=== PATIENT | female | born 1965 | race Caucasian/White ===

== ENCOUNTER 2025-02-03 11:09 | Outpatient (CLI) | payer BC, SELFPAY ==
--- OUTSIDE RECORDS SUMMARY | 2025-02-03 11:15 | XMS_ITS | Encounter Summary ---
Author Organization [facility] Address [address] [place] [address] Care Team Providers Care Painting Department Supervisor Name Role Phone Unavailable Primary Care Provider Unavailabl e Encounter Details Date Type Department Care Team (Late st Contact Info) Description 01/09/2000 Outpatient Historical [facility] 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
--- OUTSIDE RECORDS SUMMARY | 2025-02-03 11:15 | XMS_ITS | Encounter Summary ---
Author Organization [facility] Address 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
--- OUTSIDE RECORDS SUMMARY | 2025-02-03 11:15 | XMS_ITS | Encounter Summary ---
Author Organization [facility] [employer] Address [address] [place] [address] Care Team Providers Care Vending Enterprises Supervisor Name Role Phone Unavailable Primary Care Provider Unavailabl e Encounter Details Date Type Department Care Team (Late st Contact Info) Description 03/08/2000 Outpatient Historical [facility] 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
--- OUTSIDE RECORDS SUMMARY | 2025-02-03 11:15 | XMS_ITS | Clinical Summary ---
Author Organization [facility] Address [address] [facility] [address] [place] [address] Care Team Providers Care Door Framer Name Role Phone Unavailable Primary Care Provider Unavailabl e Source Comments [facility],non-owned Affiliates and Associated Physician Practices is amultiple site organization consisting of ambulatory clinics and hospital sitesin [place], [place], [place] and [place]. This disclosure is being madepursuant to the Care Everywhere program and may not contain all information available regarding this patient. Last updated 18.[facility] Allergies No known active allergies Medications * Be aware that medications may not be up to date on this document. Alwaysverify current medications with the patient. Medication Sig Dispense Quantity Refills Last Filled Start D ate End Date Status NAPROXEN PO Active Social History Tobacco Use Types Packs/Day Years Used Date Smoking Tobacco: Every Day Cigarettes Comments Unknown Sex and Gender Information Value Date Recorded Sex Assigned at Not on file Legal Sex Female 8:13 AM CDT Gender Identity Not on file Sexual Orientation Not on file Last Filed Vital Signs Vital Sign Reading Time Taken Comments Blood Pressure 122/80 11/05/2017 8:33 AM CDT Pulse 74 11/05/2017 8:33 AM CDT Temperature 37 C (98.6 F) 11/05/2017 8:33 AM CDT Respiratory Rate 18 04/04/2016 8:31 AM CDT Oxygen Saturation 98% 04/04/2016 8:31 AM CDT Inhaled Oxygen Concentration - - Weight 65.8 kg (145 lb) 11/05/2017 8:33 AM CDT Height 157.5 cm (5' 2) 11/05/2017 8:33 AM CDT Body Mass Index 26.52 11/05/2017 8:33 AM CDT Plan of Treatment Health Maintenance Due Date Last Done Comments COLOGUARD (AGES 45-75) - COL ON CA SCREENING 1966 COLON MONITORING 1966 COLONOSCOPY - COLON CA SCREENING 1966 CT COLONOGRAPHY - COLON CA SCREENING 1966 Colorectal Cancer Screening 1966 FIT - COLON CA SCREENING 1966 FLEX SIG - COLON CA SCREENING 1966 LIPID TESTING 1966 MAMMOGRAM 1966 HIV SCREENING 1981 HEPATITIS C SCREENING 12/30/1983 DTAP/TDAP/TD VACCINES (1 - Tdap) 1985 HEPATITIS B VACCINE (1 of 3 - 19+ 3-dose series) 1985 PNEUMOCOCCAL VACCINE 50+ (1 of 1 - PCV) 01/04/2016 ZOSTER VACCINE (1 of 2) 01/04/2016 SCREENING FOR DIABETES 11/05/2017 COVID-19 VACCINE (1 - 2023-2 5 season) 2024 DEPRESSION SCREENING 07/30/2024 INFLUENZA VACCINE (Season Ended) 2025 HIB VACCINE Aged Out No longer eligi ble based on patient's age to complete this topic HPV VACCINE Aged Out No longer eligi ble based on patient's age to complete this topic MENINGOCOCCAL (Group B) VACC INE SHARED DECISION-MAKING Aged Out No longer eligibl e based on patient's age to complete this topic MENINGOCOCCAL GROUPS A/C/Y/W VACCINE Aged Out No longer eligible b ased on patient's age to complete this topic Insurance [employer]
--- OUTSIDE RECORDS SUMMARY | 2025-02-03 11:15 | XMS_ITS | Encounter Summary ---
Author Organization [facility] Address [address] [place] [address] Care Team Providers Care Package Reinspector Name Role Phone Unavailable Primary Care Provider Unavailabl e Encounter Details Date Type Department Care Team (Late st Contact Info) Description 10/01/2000 Outpatient Historical [facility] HAND FUR CLEANER - Medical [facility] [address] 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
--- OUTSIDE RECORDS SUMMARY | 2025-02-03 11:15 | XMS_ITS | Encounter Summary ---
Author Organization [facility] Address 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
--- OUTSIDE RECORDS SUMMARY | 2025-02-03 11:15 | XMS_ITS | Encounter Summary ---
Author Organization [employer] Address [address] [place] [address] Care Team Providers Care Belt Conveyor Drier Name Role Phone Unavailable Primary Care Provider Unavailabl e Encounter Details Date Type Department Care Team (Late st Contact Info) Description 02/09/2000 Outpatient Historical [facility] Paige, Reinaldo Baptiste MD [address] [place] [phone] Social History Tobacco Use Types Packs/Day Years Used Date Smoking Tobacco: Never Assessed Comments Unknown Sex and Gender Information Value Date Recorded Sex Assigned at Not on file Legal Sex Female 4:31 AM LUMBER BUYER Gender Identity Not on file Sexual Orientation Not on file documented as of this encounter Plan of Treatment Not on file documented as of this encounter Visit Diagnoses Not on filedocumented in this encounter
--- OUTSIDE RECORDS SUMMARY | 2025-02-03 11:15 | XMS_ITS | Encounter Summary ---
Author Organization [facility] Address [address] [place] [address] Care Team Providers Care Hand Spring Repairer Helper Name Role Phone Unavailable Primary Care Provider Unavailabl e Encounter Details Date Type Department Care Team (Late st Contact Info) Description 03/08/2000 Outpatient Historical [facility] 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
--- OUTSIDE RECORDS SUMMARY | 2025-02-03 11:15 | XMS_ITS | Referral Summary ---
Author Organization [facility] [place] [address] Address [address] [place] [id number] Care Team Providers Care Nozzle Tender Name Role Phone Arian Mcconnell MD Primary Care Provider [phone] Encounters Date Type Department Care Team Description 12/01/2024 8:45 AM CDT Office Visit [facility] [place] [address] [place] [address] [address] [place] [address] Arian Mcconnell MD Tobacco use disorder, mild, in sustained remission (Primary Dx); Liver lesion; Chronic right shoulder pain; Shift work sleep disorder from Last 3 Months Allergies No known active allergies Medications ibuprofen (ADVIL,MOTRIN) 200 mg tab/cap Take 1 tablet/capsu le (200 mg total) by mouth every 6 (six) hours as needed for pain Active zolpidem (AMBIEN) 5 mg tablet Take 1 tablet (5 mg total) by mouth nightly as needed for sleep for sleep 30 tablet 2 05/30/2024 Active Active Problems Problem Noted Date Diagnosed Date Right shoulder pain 08/23/2024 Assessment & Plan (12/01/2024 1:35 PM CDT): Follows with orthopedics for evaluation and management Skin abnormality 12/13/2023 Adenoma of right adrenal gland 11/20/2023 Assessment & Plan (06/03/2024 3: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 Production of steroids, androgens and catecholamines was explained. It was explained to the patient that the main questions to answer it is if this is benign tumor and if it is hyperfunctioning. There are already imaging studies with MRI from 2021 in 2023 that has shown no changes in the size or appearance of the right adrenal nodule. Also the radiological appearance is that of a benign adenoma. Regarding hyper functionality, there is no indication on physical examination review of systems of hypercortisolism, hypoadrenalism nor hyperandrogenism. To complete workup,will assess with 1 mg dexamethasone suppression test, DHEA, DHEA-S and serum catecholamines. If these are negative, no further follow-up will be indicated. Otherwise, will follow up with recommendations Assessment & Plan (11/20/2023 2:55 PM CDT): Stable, labs generally normal with no evidence of electrolyte alterations, or adjustments to blood sugars; will follow up on recommendations per Endocrinology Macrocytosis without anemia 05/17/2023 Assessment & Plan (11/20/2023 2:54 PM CDT): Stable, MCV remains elevated with normal H&H Will continue to monitor Assessment & Plan (05/17/2023 11:33 AM CDT): - prior labs MCV- 100 w/o anemia - with r/o folate and/or B12 def Stress incontinence (female) (male) 05/17/2023 Assessment & Plan (05/17/2023 11:31 AM CDT): - loss of urine w/ coughing or laughing. No dysuria, no lesions or discharge. - patient prefers trial of home exercises. Provided info in [place]. - If no improvement consider PT pelvic floor rehab. Liver lesion 05/17/2023 Overview (05/17/2023): 02/22/22- 1.9 cm cyst within the liver. Multiple additional tiny T2 hyperintense foci are zak metric in size and would statistically represent cysts as well. No abnormal enhancing lesion within the liver. 2. No definitive correlate for 6 mm hyperechoic lesion within the right hepatic lobe on prior ultrasound from 11/14/2021. 05/23/22- US liver- Unchanged hyperechoic 0.6 cm right hepatic lobe lesion without a specific correlate on the prior MRI. This appears to be a tiny hypodensity on the prior CT and therefore may be a tiny hemangioma. 6-12 month ultrasound follow-up recommended. Assessment & Plan (12/01/2024 1:35 PM CDT): Stable, small simple cyst seen on imaging; no further imaging required; per patient has been present for at least 30 years Assessment & Plan (11/20/2023 2:54 PM CDT): Stable, improved on imaging; will continue to monitor with regular imaging; likely annual in nature; most likely benign cysts Assessment & Plan (05/17/2023 11:39 AM CDT): - no abdominal pain, unexpected silvia loss or jaundice - lesions have been stable. Last imaging was 1 year ago. 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 Assessment & Plan (11/20/2023 2:55 PM CDT): Stable, well controlled with current medications Continue Ambien 5 mg Assessment & Plan (05/17/2023 1:08 PM CDT): Patient has irregular work schedule, often switching schedule between work days and non-work days Patient benefits from use of sleep aid to help regulate sleep schedule Continue Ambien 5 mg p.r.n. 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 12/02/19 22 Overview (12/01/2021): Added automatically from request for surgery [id number] Cubital tunnel syndrome on left 12/01/2021 Overview (12/01/2021): Added automatically from request for surgery [id number] Trigger finger of left thumb 12/01/2021 Overview (12/01/2021): Added automatically from request for surgery [id number] Encounter for screening colonoscopy 11/29/2021 Overview (11/29/2021): Added automatically from request for surgery [id number] Cubital tunnel syndrome on right 08/29/2021 Overview (08/29/2021): Added automatically from request for surgery [id number] Numbness and tingling of both feet 08/04/2019 Bilateral carpal tunnel syndrome 07/10/2019 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 Overview (11/03/2016): Early menopause Tobacco use disorder, mild, in sustained remissi on 07/16/2013 Overview (11/03/2016): Tobacco use Assessment & Plan (12/01/2024 1:34 PM CDT): Stable, well controlled; tobacco free for 10 months; no significant cravings at this time Encouraged continued cessation Assessment & Plan (06/03/2024 3:41 PM ELECTRICAL ENGINEERING 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 - not interested in quitting smoking at this time - w/ offer assistance at subsequent visits - Low dose CT pending Assessment & Plan (05/16/2022 1:17 PM CDT): Patient smokes approximately 1 pack per day, for over 20 years; has been getting CT scans Continue with annual surveillance Immunizations Immunization Administration Dates Next Due Influenza, Quadrivalent, Spl it, Intramuscular 05/03/2015 Influenza, Quadrivalent, Spl it, Preservative Free, Intramuscular 05/16/2022 Influenza, Trivalent, Preser vative Free, Intramuscular 06/05/2008 Influenza, Unspecified 08/21/2024(Deferr ed: Patient Refused),05/05/2024(Deferred: Patient Refused),11/20/2023(Deferred: Patient Refused),05/17/2023(Deferred: Patient Refused),03/30/2023(Deferred: Patient Refused) Tdap 05/16/2022 Social History Tobacco Use Types Packs/Day Years Used Date Smoking Tobacco: Former Cigarettes 1 20 Q uit: 04/29/2024 Smokeless Tobacco: Never Comments:Smoking History Pac ks/day: 0.5 Packs, counselling given, contact PCP for assistance for quitting. Alcohol Use Standard Drinks/Week Comments Yes 0 (1 standard drink = 0.6 oz pur e alcohol) AUDIT-C Answer Date Recorded Q1: How often do you have a drink containing alc ohol? Monthly or less 11/28/2023 Average Number of Drinks Not on file 024 Frequency of Binge Drinking Not on file 07/2023 PHQ-2 Answer Date Recorded PHQ-2 Total Score (If total score is 3 or more points, staff should administer the PHQ-9) 0 12/01/2024 Comments No Sex and Gender Information Value Date Recorded Sex Assigned at Not on file Legal Sex Female 6:45 PM ELECTRICAL ENGINEERING PROFESSOR Gender Identity Not on file Sexual Orientation Not on file Last Filed Vital Signs Vital Sign Reading Time Taken Comments Blood Pressure 110/72 12/01/2024 8:45 AM CDT Pulse 72 12/01/2024 8:45 AM CDT Temperature 36.3 C (97.4 F) 12/01/2024 8:45 AM CDT Respiratory Rate 18 12/01/2024 8:45 AM CDT Oxygen Saturation 98% 12/01/2024 8:45 AM CDT Inhaled Oxygen Concentration - - Weight 71.7 kg (158 lb) 12/01/2024 8:45 AM CDT Height 157.5 cm (5' 2) 12/01/2024 8:45 AM CDT Body Mass Index 28.9 12/01/2024 8:45 AM CDT Plan of Treatment Not on file Procedures Procedure Name Priority Date/Time Associated Diagnosis Comments CT LUNG CANCER SCREENING Schedule Routine, Read Routine (OP Routine) 10/04/2024 8:15 AM ELECTRICAL ENGINEERING PROFESSOR Tobacco use Cigarette nicotine dependence, uncomplicated SCREENING MAMMOGRAM BILATERAL W ALYSON Schedule Routine, Read Routine (OP Routine) 07/03/2024 2:25 PM ELECTRICAL ENGINEERING PROFESSOR Breast cancer screening by mammogram HEPATITIS C ANTIBODY Routine 05/27/2024 10:07 AM CDT Encounter for hepatitis C screening test for low risk patient COLONOSCOPY 01/02/2022 11:19 AM CDT from Last 3 Months or Most Recently Relevant to Health Maintenance Results * CT Lung Cancer Screening (10/04/2024 8:15 AM ELECTRICAL ENGINEERING PROFESSOR) Anatomical Region Laterality Modality Chest N/A Computed Tomogra phy 10/07/2024 11:3 2 AM CDT Narrative 10/07/2024 11:44 AM CDT EXAM DESCRIPTION: CT LUNG CANCER SCREENING REASON FOR STUDY: Screening CT of the chest in a former smoker with a 20 pack year smoking history. Additional history: Stopped smoking 04/29/2024. TECHNIQUE: Low dose CT scan of the chest was performed without intravenous contrast using helical scanning technique. The exam extends from the lung apices through the lung bases. Automatic exposure control was used as a dose optimization technique. NOTE: This study was performed for the specific purposes of lung cancer screening and is not an alternative to diagnostic chest CT. RADIATION DOSE: CT dose index volume (CTDIvol) = 1.52 mGy COMPARISON: CT chest 06/19/2023 FINDINGS: SMOKING RELATED LUNG DISEASE: Mild emphysema. There has been minimal improvement in subtle tiny centrilobular ground-glass nodules in the upper lobes suggestive of mild respiratory bronchiolitis in a smoker. LUNG NODULES: Tiny centrilobular ground-glass nodules as discussed above. No suspicious lung nodules are seen. CORONARY ARTERY CALCIFICATION: Positive OTHER: There is no pleural effusion or pneumothorax. The central airways are patent. Normal heart size. No pericardial effusion. Thoracic aorta is normal in course and caliber. No mediastinal or axillary lymphadenopathy. There is nonobstructing left-sided nephrolithiasis. No suspicious osseous lesion. IMPRESSION: No suspicious lung nodules. Minimal improvement in subtle tiny centrilobular ground-glass nodules in the upper lobes suggestive of mild respiratory bronchiolitis in a smoker. Mild emphysema. Lung-RADS category 2: Benign appearance or behavior. Recommendation: Low dose Screening CT of chest in 12 months. THIS IS AN ELECTRONICALLY VERIFIED FINAL REPORT 10/07/2024 11:44 AM - Electronically signed by Mejia Waller M.D. AM: AM Report ID: [id number] Reading Location: [id number] Procedure Note Mejia Waller MD - 10/07/2024 EXAM DESCRIPTION: CT LUNG CANCER SCREENING REASON FOR STUDY: Screening CT of the chest in a former smoker with a20 pack year smoking history. Additional history: Stopped [id number]/29/2024. TECHNIQUE: Low dose CT scan of the chest was performed without intravenous contrast using helical scanning technique. The exam extends from the lung apices through the lung bases. Automatic exposure control was used as adose optimization technique. NOTE: This study was performed for the specific purposes of lung cancer screening and is not an alternative to diagnostic chest CT. RADIATION DOSE: CT dose index volume (CTDIvol) = 1.52 mGy COMPARISON: CT chest 06/19/2023 FINDINGS: SMOKING RELATED LUNG DISEASE: Mild emphysema. There has been minimal improvement in subtle tiny centrilobular ground-glass nodules in the upper lobes suggestive of mild respiratory bronchiolitis in a smoker. LUNG NODULES: Tiny centrilobular ground-glass nodules as discussedabove. No suspicious lung nodules are seen. CORONARY ARTERY CALCIFICATION: Positive OTHER: There is no pleural effusion or pneumothorax. The centralairways are patent. Normal heart size. No pericardial effusion. Thoracic aortais normal in course and caliber. No mediastinal or axillary lymphadenopathy. There is nonobstructing left-sided nephrolithiasis. No suspicious osseous lesion. IMPRESSION: No suspicious lung nodules. Minimal improvement in subtle tiny centrilobular ground-glass nodules inthe upper lobes suggestive of mild respiratory bronchiolitis in a smoker. Mild emphysema. Lung-RADS category 2: Benign appearance or behavior. Recommendation: Low dose Screening CT of chest in 12 months. THIS IS AN ELECTRONICALLY VERIFIED FINAL REPORT 10/07/2024 11:44 AM - Electronically signed by Mejia Waller M.D. AM: AM Report ID: [id number] Reading Location: [place] [address] Arian Mcconnell MD [facility] [place] PROCEDURES Final R esult * Screening Mammogram Bilateral W Alyson (07/03/2024 2:25 PM ELECTRICAL ENGINEERING PROFESSOR) Anatomical Region Laterality Modality Breast Bilateral Mammography 07/03/2024 4:41 PM ELECTRICAL ENGINEERING PROFESSOR Impressions 07/03/2024 4:41 PM ELECTRICAL ENGINEERING PROFESSOR There is no mammographic evidence to suggest malignancy. The patient may continue screening mammography as per ACR guidelines. FINAL ASSESSMENT: BI-RADS Category 1: Negative. Electronically signed by: Lily Lebron M.D. Narrative 07/03/2024 4:41 PM ELECTRICAL ENGINEERING PROFESSOR EXAMINATION: BILATERAL SCREENING MAMMOGRAM WITH TOMOGRAPHY HISTORY: Screening. COMPARISON(S): 2022 and 2021 TECHNIQUE: Full-field 2D images and digital tomosynthesis images were obtained. CAD was utilized. BREAST PARENCHYMAL COMPOSITION: There are scattered areas of fibroglandular density. FINDINGS: There are no suspicious masses. No suspicious calcifications are seen. There is no unexplained architectural distortion. There is no skin thickening seen. There are no mammographically abnormal lymph nodes seen in the axillae or elsewhere. Procedure Note Lily Lebron MD - 07/03/2024 EXAMINATION: BILATERAL SCREENING MAMMOGRAM WITH TOMOGRAPHY HISTORY: Screening. COMPARISON(S): 2022 and 2021 TECHNIQUE: Full-field 2D images and digital tomosynthesis images were obtained. CAD was utilized. BREAST PARENCHYMAL COMPOSITION: There are scattered areas of fibroglandular density. FINDINGS: There are no suspicious masses. No suspicious calcifications are seen. There is no unexplained architectural distortion. There is no skin thickening seen. There are no mammographically abnormal lymph nodes seen in the axillae or elsewhere. IMPRESSION: There is no mammographic evidence to suggest malignancy. The patient may continue screening mammography as per ACR guidelines. FINAL ASSESSMENT: BI-RADS Category 1: Negative. Electronically signed by: Lily Lebron M.D. Arian Mcconnell MD IMG MAMMO PROCEDURES Lois l Result * Hepatitis C antibody Blood (05/27/2024 10:07 AM CDT) Hep C Ab Nonreactive Nonreactive Comment: Interpretive Data Nonreactive: Antibodies to HCV not detected. Does NOT exclude the possibility of recent exposure to HCV. Equivocal: Equivocal for HCV antibodies. Supplemental molecular testing will be automatically performed to determine infection status in accordance with current CDC screening recommendations. Reactive: Positive for HCV antibodies. This may represent current or past HCV infection. Supplemental molecular testing will be automatically performed to determine current infection status in accordance with current CDC screening recommendations. Interpretive data was last revised on 2019. Blood 05/27/2024 10:0 7 AM CDT 05/27/2024 12:54 PM CDT Arian Mcconnell MD LAB MICROBIOLOGY - GENERA L ORDERABLES Final Result [address] [facility] [place] [address] * COLONOSCOPY (01/02/2022 11:19 AM CDT) Anatomical Region Laterality Modality Other Narrative Procedure Note Sg Urbina MD - 01/02/2022 11:19 AM CDT [facility] Patient Name: Martha Pham Procedure Date: 01/02/2022 11:19 AM Date of : 1965 Admit Type: Outpatient Age: 56 Gender: Female Attending MD: Sg Urbina M.D. Room: [facility] ENDOSCOPY ROOM 2 Note Status: Finalized Patient Profile: Refer to note in patient chart for documentation of history and physical. Procedure: Colonoscopy Indications: Screening for colorectal malignant neoplasm, Thisis the patient's first colonoscopy Referring MD: Missael Gerardo M.D. Providers: Sg Urbina M.D. Impression: - Hemorrhoids found on perianal exam. - The entire examined colon is normal. - No specimens collected. Recommendation: - Discharge patient to home. - Resume previous diet. - Continue present medications. - Repeat colonoscopy in 10 years for screening purposes. - Return to primary care physician as previously scheduled. Medicines: Propofol per Anesthesia Complications: No immediate complications. Estimated Blood Loss: Estimated blood loss: none. Procedure: Pre-Anesthesia Assessment: - This assessment was completed [Time ofAssessment] prior to the administration of sedation. The benefits, risks and alternatives of theprocedure and sedation were discussed and informed consentwas obtained. All questions were answered. Please referto the signed informed consent document in the medical record. The bowel preparation used was Miralax via single dose instruction. The bowel preparation used was bisacodyl tablets via single dose instruction.The scope was passed under direct vision. TheColonoscope [id number] was introduced through the anus and advanced to the the cecum, identified by appendiceal orifice and ileocecal valve. The colonoscopy was performed without difficulty. The patient tolerated the procedure well. The qualityof the bowel preparation was excellent. The ileocecal valve, appendiceal orifice, and rectum were photographed. Findings: Hemorrhoids were found on perianal exam. The colon (entire examined portion) appeared normal. Electronically signed by Sg Urbina M.D. Sg Urbina M.D. 01/02/2022 11:48:40 AM Number of Addenda: 0 Note Initiated On: 01/02/2022 11:19 AM Procedure Code(s): --- Professional --- G0121, Colorectal cancer screening; colonoscopy on individual not meeting criteria for high risk Diagnosis Code(s): --- Professional --- K64.9, Unspecified hemorrhoids Z12.11, Encounter for screening for malignant neoplasm of colon CPT copyright 2020 [employer]. All rights reserved. The codes documented in this report are preliminary and upon windows security analyst reviewmay be revised to meet current compliance requirements. Recognized by the [employer] for promoting quality in endoscopy us Sg Urbina MD ENDOSCOPY PROCEDURES Final Re sult from Last 3 Months or Most Recently Relevant to Health Maintenance [place] [employer] [place] [employer] [place] [employer] [place] Advance Directives For more information, please contact: [phone] * Full Code (Latest Code Status on File) Date Activated Date Inactivated Comments 01/02/2022 10:07 AM 01/02/2022 4:39 PM * Full Code Date Activated Date Inactivated Comments 01/02/2022 10:06 AM 01/02/2022 10:07 AM Care Teams Nozzle Tender Relationship Specialty Start Date End Date Arian Mcconnell MD [address] [place] [address] PCP - General Family Medicine 05/16/22
--- OUTSIDE RECORDS SUMMARY | 2025-02-03 11:15 | XMS_ITS | Clinical Summary ---
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
--- OUTSIDE RECORDS SUMMARY | 2025-02-03 11:15 | XMS_ITS | Encounter Summary ---
Author Organization [employer] Address [address] [place] [address] Care Team Providers Care Director Sales Training Name Role Phone Unavailable Primary Care Provider Unavailabl e Encounter Details Date Type Department Care Team (Late st Contact Info) Description 01/27/2000 Outpatient Historical [facility] DR[facility] 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
--- OUTSIDE RECORDS SUMMARY | 2025-02-03 11:15 | XMS_ITS | Encounter Summary ---
Author Organization [employer] Address [address] [place] [address] Care Team Providers Care Test Engineering Technician Name Role Phone Unavailable Primary Care Provider Unavailabl e Encounter Details Date Type Department Care Team (Late st Contact Info) Description 11/07/1999 Outpatient Historical [facility] 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
--- OUTSIDE RECORDS SUMMARY | 2025-02-03 11:15 | XMS_ITS | Encounter Summary ---
Author Organization [facility] Address 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
--- OUTSIDE RECORDS SUMMARY | 2025-02-03 11:15 | XMS_ITS | Clinical Summary ---
Author Organization [facility] Address [address] [place] [address] Phone Care Team Providers Care Storyboard Artist Name Role Phone Unavailable Primary Care Provider Unavailabl e Allergies No known active allergies Medications No known medications Active Problems No known active problems Immunizations Immunization Administration Dates Next Due Influenza Vaccine 06/05/2008 Influenza Vaccine, Quadrivalent, PF 05/16/2022 Influenza, Injectable, Quadrivalent 05/03/2015 TDAP Vaccine 05/16/2022 Social History Tobacco Use Types Packs/Day Years Used Date Smoking Tobacco: Every Day Cigarettes 1 30 Tobacco Cessation:Ready to Q uit: Not Asked; Counseling Given: Not Answered Alcohol Use Standard Drinks/Week Comments Not Currently 0 (1 standard drink = 0.6 oz pur e alcohol) Sexually Active Control Partners Comments Not Currently Comments No Sex and Gender Information Value Date Recorded Sex Assigned at Not on file Legal Sex Female 9:51 PM CDT Gender Identity Not on file Sexual Orientation Not on file Last Filed Vital Signs Vital Sign Reading Time Taken Comments Blood Pressure 124/76 07/15/2022 10:51 AM WET END TESTER Pulse 58 07/15/2022 10:51 AM WET END TESTER Temperature 37.1 C (98.7 F) 07/15/2022 10:51 AM WET END TESTER Respiratory Rate 17 07/15/2022 10:51 AM WET END TESTER Oxygen Saturation 97% 07/15/2022 10:51 AM WET END TESTER Inhaled Oxygen Concentration - - Weight - - Height - - Body Mass Index - - Plan of Treatment Health Maintenance Due Date Last Done Comments Hepatitis C Virus (HCV) Screening 1965 Hepatitis B Immunization (1 of 3 - 19+ 3-dose series) 1985 Cologuard 2011 Colonoscopy 2011 Colorectal Cancer Screening 2011 Immunochemical Fecal Occult Blood 2011 Pneumococcal Immunization (5 0+ years) (1 of 1 - PCV) 01/04/2016 Zoster Immunization (1 of 2) 01/04/2016 SARS-COV-2 Immunization (3 - season) 2024 06/09/2021, 05/19/2021 Influenza Immunization (#1) 03/30/202504/29, 05/03/2015, 06/05/2008 Respiratory Syncytial Virus (RSV) Immunization (Adult) (1 - 1-dose 75+ series) 2041 Lung Cancer Screening Discontinued 09/08/2021 DTaP/Tdap/Td Immunization Discontinued 05/16/2022 Human Papillomavirus (HPV) Immunization Aged Out No longer eligible based on patient's age to complete this topic Meningococcal Immunization (ACWY) Aged Out No longer eligible based on patient's age to complete this topic Rotavirus Immunization Aged Out No lo nger eligible based on patient's age to complete this topic Procedures Procedure Name Priority Date/Time Associated Diagnosis Comments CT CHEST SCREENING WO Routine 09/08/2021 11:50 AM WET END TESTER Nicotine dependence, cigarettes, uncomplicated from Last 3 Months or Most Recently Relevant to Health Maintenance Results * CT CHEST SCREENING WO (09/08/2021 11:50 AM WET END TESTER) Anatomical Region Laterality Modality Chest N/A Computed Tomogra phy 09/08/2021 7:40 PM WET END TESTER Impressions 09/08/2021 7:43 PM WET END TESTER IMPRESSION: 1. Scattered zak metric pulmonary nodules. No suspicious pulmonary nodule. 2. Very minimal pulmonary emphysema in the upper lobes. 3. Subcentimeter hypodensity within the right hepatic lobe, too small to characterize. 4. Nonobstructing left renal calculi. 5. Additional findings as above. Lung-RADS v1.1 category 2: Benign appearance or behavior. Recommendation: Continue annual screening low-dose chest CT in 12 months. Narrative 09/08/2021 7:43 PM WET END TESTER EXAM DESCRIPTION: CT CHEST SCREENING WO REASON FOR STUDY: Screening CT of the chest in a current smoker with a 30 pack year smoking history. Additional history: None. TECHNIQUE: Low dose CT scan of the [...] DOSE: CT dose index volume (CTDIvol) = 2.08 mGy COMPARISON: None FINDINGS: SMOKING RELATED LUNG DISEASE: Very minimal emphysematous change demonstrated within the upper lobes. There is some mild bronchial wall thickening. LUNG NODULES: There are a few scattered zak metric pulmonary nodules measuring 3 mm or less. For instance in the posterior left lower lobe on axial image number 182 measuring 2 mm. No suspicious nodularity. OTHER: No pneumonic consolidation. No effusion or pneumothorax. Minimal dependent atelectasis. The central airways are widely patent. The thyroid gland is unremarkable. No lymphadenopathy. The heart is normal in size. There are coronary artery calcifications. No pericardial effusion. The thoracic aorta is nonaneurysmal. There is no axillary lymphadenopathy. The chest wall is unremarkable. There is a punctate nonobstructing calculus within the upper pole of the left kidney. Mild nonspecific thickening of the adrenal glands noted. Subcentimeter hypodensity in the lateral aspect of the right hepatic lobe on image 116 is too small to characterize. No acute osseous abnormality. THIS IS AN ELECTRONICALLY VERIFIED FINAL REPORT 09/08/2021 7:40 PM - Electronically signed by Kirsten Guidry M.D. TB: TB Report ID: [id number] Reading Location: [facility] [place] Procedure Note Kirsten Nickerson MD - 09/08/2021 EXAM DESCRIPTION: CT CHEST SCREENING WO REASON FOR STUDY: Screening CT of the chest in a current smoker with a 30 pack year smoking history. Additional history: None. TECHNIQUE: Low dose CT scan of the [...] DOSE: CT dose index volume (CTDIvol) = 2.08 mGy COMPARISON: None FINDINGS: SMOKING RELATED LUNG DISEASE: Very minimal emphysematous change demonstrated within the upper lobes. There is some mild bronchial wall thickening. LUNG NODULES: There are a few scattered zak metric pulmonary nodules measuring 3 mm or less. For instance in the posterior left lower lobe on axial image number 182 measuring 2 mm. No suspicious nodularity. OTHER: No pneumonic consolidation. No effusion or pneumothorax. Minimal dependent atelectasis. The central airways are widely patent. The thyroid gland is unremarkable. No lymphadenopathy. The heart is normal in size. There are coronary artery calcifications. No pericardial effusion. The thoracic aorta is nonaneurysmal. There is no axillary lymphadenopathy. The chest wall is unremarkable. There is a punctate nonobstructing calculus within the upper pole of the left kidney. Mild nonspecific thickening of the adrenal glands noted. Subcentimeter hypodensity in the lateral aspect of the right hepatic lobe on image 116 is too small to characterize. No acute osseous abnormality. THIS IS AN ELECTRONICALLY VERIFIED FINAL REPORT 09/08/2021 7:40 PM - Electronically signed by Kirsten Guidry M.D. TB: TB Report ID: [id number] Reading Location: [facility] [place] IMPRESSION: 1. Scattered zak metric pulmonary nodules. No suspicious pulmonary nodule. 2. Very minimal pulmonary emphysema in the upper lobes. 3. Subcentimeter hypodensity within the right hepatic lobe, too small to characterize. 4. Nonobstructing left renal calculi. 5. Additional findings as above. Lung-RADS v1.1 category 2: Benign appearance or behavior. Recommendation: Continue annual screening low-dose chest CT in 12 months. Missael Gerardo MD [facility] CT ORDERABLES Final R esult from Last 3 Months or Most Recently Relevant to Health Maintenance Insurance [facility]
--- OUTSIDE RECORDS SUMMARY | 2025-02-03 11:15 | XMS_ITS | Encounter Summary ---
Author Organization [employer] Address [address] [place] [address] Care Team Providers Care Deburring Technician Name Role Phone Unavailable Primary Care Provider Unavailabl e Encounter Details Date Type Department Care Team (Late st Contact Info) Description 12/08/1999 Outpatient Historical [facility] 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
--- OUTSIDE RECORDS SUMMARY | 2025-02-03 11:15 | XMS_ITS | Clinical Summary ---
Author Organization [facility] [address] [place] [address] Care Team Providers Care Unit Aide Name Role Phone Arian Mcconnell MD Primary Care Provider [phone] Allergies No known active allergies Medications ibuprofen [...] 11/20/2023 Assessment & Plan (06/03/2024 3:42 PM INSIDE UPHOLSTERER): Stable, well controlled; no evidence of hyper [...] trial of home exercises. Provided info in [employer]. - If no improvement consider PT pelvic [...] assistance Assessment & Plan (06/03/2024 3:42 PM INSIDE UPHOLSTERER): Stable, generally well controlled, able to get [...] (12/01/2021): Added automatically from request for surgery [id number] Cubital tunnel syndrome on left 12/01/2021 Overview (12/01/2021): Added automatically from request for surgery [id number] Trigger finger of left thumb 12/01/2021 Overview (12/01/2021): Added automatically from request for surgery [id number] Encounter for screening colonoscopy 11/29/2021 Overview (11/29/2021): Added automatically from request for surgery [id number] Cubital tunnel syndrome on right 08/29/2021 Overview (08/29/2021): Added automatically from request for surgery [id number] Numbness and tingling of both feet 08/04/2019 Bilateral carpal tunnel syndrome 07/10/2019 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 Overview (11/03/2016): Early menopause Tobacco use disorder, mild, in sustained remissi on 07/16/2013 Overview (11/03/2016): Tobacco use Assessment & Plan (12/01/2024 1:34 PM CDT): Stable, well controlled; tobacco free for 10 months; no significant cravings at this time Encouraged continued cessation Assessment & Plan (06/03/2024 3:41 PM INSIDE UPHOLSTERER): Stable, improving; no longer smoking tobacco; continues [...] getting CT scans Continue with annual surveillance Encounters Date Type Department Care Team Description 12/01/2024 8:45 AM CDT Office Visit [facility] Primary Care at [address] [address] Arian Mcconnell MD Tobacco use disorder, mild, in sustained remission (Primary Dx); Liver lesion; Chronic right shoulder pain; Shift work sleep disorder from Last 3 Months Immunizations Immunization Administration Dates Next Due Influenza, Quadrivalent, Spl it, Intramuscular 05/03/2015 Influenza, Quadrivalent, Spl it, Preservative Free, Intramuscular 05/16/2022 Influenza, Trivalent, Preser vative Free, Intramuscular 06/05/2008 Influenza, Unspecified 08/21/2024(Deferr ed: Patient Refused),05/05/2024(Deferred: Patient Refused),11/20/2023(Deferred: Patient Refused),05/17/2023(Deferred: Patient Refused),03/30/2023(Deferred: Patient Refused) Tdap 05/16/2022 Surgical History Surgery Date Site/Laterality Comments TOTAL ABDOMINAL HYSTERECTOMY W/ BILATERAL SALPINGOOPHORECTOMY Hysterectomy, total abdominal, BSO LEG SURGERY Right Leg Surgery- broke ankle with plate put in LAPAROSCOPY multiple surgies ROTATOR CUFF REPAIR Left COLONOSCOPY 01/02/2022 CARPAL TUNNEL RELEASE 08/30/2021 - 09/26/2021 Right FRACTURE SURGERY 2003 Medical History Medical History Date Comments Hx Other Medical Meningitis, vir al 15 years ago Hx Other Medical Premature menop ause Motion sickness Kidney cysts Meningitis Arthritis 2018 Osteoporosis 2012 Family History Medical History Relation Name Comments Coronary artery disease Father Devaughn muhammad Kala nary artery disease, premature; Heart disease Father Devaughn muhammad Hypertension Father Devaughn muhammad Arthritis Mother Kianna mack Cancer Mother Kianna mack melanoma Hypertension Mother Kianna mack Breast cancer Mother's Sister 1 Breast cancer Mother's Sister 2 Hypertension Other 1 Family history of Hypertension; Peripheral vascular disease Other 2 Family history of Peripheral vascular disease; Diabetes Other 3 Diabetes mellit us; Heart disease Other 4 Heart disease; Relation Name Status Comments Father Devaughn muhammad Mother Kianna mack Alive Mother's Sister 1 Mother's Sister 2 Other 1 Other 2 Other 3 Other 4 Social History Tobacco Use Types Packs/Day Years [...] on file Legal Sex Female 6:45 PM INSIDE UPHOLSTERER Gender Identity Not on file Sexual Orientation Not on file Obstetrics History Para Term AB IAB SAB Ectopic Multiple Livin g Live Births 4 1 1 Date Outcome GA Total Labor Labor/2nd/3rd Weight Sex Type Anes PTL Helga A1 A5 Name Clin Term Last Filed Vital Signs Vital Sign Reading [...] 12/01/2024 8:45 AM CDT Plan of Treatment Health Maintenance Due Date Last Done Comments Zoster Vaccine (1 of 2) 01/04/2016 Covid-19 Vaccine (3 - 2023-2 5 season) 2024 06/09/2021, 05/19/2021 Regular Well Visit/Exam 18-64 05/17/2024 05/17/2023 Influenza Vaccine (#1) 2025 , 05/03/2015, 06/05/2008 Breast Cancer Screening-Mammogram 07/03/2025 07/03/2024, 02/01/2023, 12/08/2021, Additional history exists Lung Cancer Screening 10/05/2025 10/04/2024 , 06/19/2023, 09/08/2021 Depression Screening 12/01/2025 12/01/2024, 11/20/2023, 05/17/2023, Additional history exists Colon Cancer Screening-Colonoscopy 2032 01/02/2022 DTaP/Tdap/Td Vaccine (2 - Td or Tdap) 05/16/2032 05/16/2022 Colon Cancer Screening-CT Colonography Discontinued 01/02/2022 Colon Cancer Screening-DNA Stool Discontinued 01/03/20 Colon Cancer Screening-FIT Discontinued 01/02/2022 Colon Cancer Screening-Sigmoidoscopy Discontinued 01/02/2022 Hepatitis B Screening Completed 05/27/2024 Hepatitis C Screening Completed 05/27/2024 Pneumococcal vaccine <65 Discontinued Procedures Procedure Name Priority Date/Time Associated Diagnosis Comments CT LUNG CANCER SCREENING Schedule Routine, Read Routine (OP Routine) 10/04/2024 8:15 AM INSIDE UPHOLSTERER Tobacco use Cigarette nicotine dependence, uncomplicated SCREENING MAMMOGRAM BILATERAL W JONO Schedule Routine, Read Routine (OP Routine) 07/03/2024 2:25 PM INSIDE UPHOLSTERER Breast cancer screening by mammogram HEPATITIS C ANTIBODY Routine 05/27/2024 10:07 AM CDT Encounter for hepatitis C screening test for low risk patient COLONOSCOPY 01/02/2022 11:19 AM CDT from Last 3 Months or Most Recently Relevant to Health Maintenance Results * CT Lung Cancer Screening (10/04/2024 8:15 AM INSIDE UPHOLSTERER) Anatomical Region Laterality Modality Chest N/A Computed [...] Mejia Waller M.D. AM: AM Report ID: [id number] Reading Location: [id number] Procedure Note Mejia Waller MD - 10/07/2024 EXAM DESCRIPTION: CT LUNG CANCER SCREENING REASON FOR STUDY: Screening CT of the chest in a former smoker with a20 pack year smoking history. Additional history: Stopped [id number]/2024. TECHNIQUE: Low dose CT scan of the [...] Mejia Waller M.D. AM: AM Report ID: [id number] Reading Location: [id number] [place] Arian Mcconnell MD IMG CT PROCEDURES Final R esult * Screening Mammogram Bilateral W Jono (07/03/2024 2:25 PM INSIDE UPHOLSTERER) Anatomical Region Laterality Modality Breast Bilateral Mammography 07/03/2024 4:41 PM INSIDE UPHOLSTERER Impressions 07/03/2024 4:41 PM INSIDE UPHOLSTERER There is no mammographic evidence to suggest malignancy. The patient may continue screening mammography as per ACR guidelines. FINAL ASSESSMENT: BI-RADS Category 1: Negative. Electronically signed by: Lily Lebron M.D. Narrative 07/03/2024 4:41 PM INSIDE UPHOLSTERER EXAMINATION: BILATERAL SCREENING MAMMOGRAM WITH TOMOGRAPHY HISTORY: [...] by: Lily Lebron M.D. Arian Mcconnell MD IM MAMMO PROCEDURES Lois l Result * Hepatitis [...] 7 AM CDT 05/27/2024 12:54 PM CDT us Arian Mcconnell MD LAB MICROBIOLOGY - GENERA L ORDERABLES Final Result [address] [address] [address] Department [place] [address] * COLONOSCOPY (01/02/2022 11:19 AM CDT) Anatomical Region Laterality Modality Other Narrative Procedure Note Sg Urbina MD - 01/02/2022 11:19 AM CDT [facility] Patient Name: Martha Pham Procedure Date: 01/02/2022 11:19 AM Date of : 1965 Admit Type: Outpatient Age: 56 Gender: Female Attending MD: Sg Urbina M.D. Room: [facility] ENDOSCOPY ROOM 2 Note Status: Finalized Patient [...] scope was passed under direct vision. TheColonoscope [id number] was introduced through the anus and advanced [...] malignant neoplasm of colon CPT copyright 2020 [employer]. All rights reserved. The codes documented in this report are preliminary and upon occupational therapy specialist reviewmay be revised to meet current compliance requirements. Recognized by the [employer] for promoting quality in endoscopy Sg Urbina MD ENDOSCOPY PROCEDURES Final Re sult from Last 3 Months or Most Recently Relevant to Health Maintenance Insurance [place] [facility] Advance Directives For more information, please contact: [phone] * Full Code (Latest Code Status on File) Date Activated Date Inactivated Comments 01/02/2022 10:07 AM 01/02/2022 4:39 PM * Full Code Date Activated Date Inactivated Comments 01/02/2022 10:06 AM 01/02/2022 10:07 AM Care Teams Unit Aide Relationship Specialty Start Date End Date Arian [place] [id number] PCP - General Family Medicine 05/16/22
--- NOTE | 2025-02-03 11:19 | ECG_ITS ---
Test Date: 2025-02-03 11:29:45 Measurements Intervals [place] Rate: 65 P: -69 CO: 110 QRS: -7 QRSD: 86 T: 24 QT: 387 QTc: 403 Interpretive Statements SINUS RHYTHM LOW QRS VOLTAGE IN PRECORDIAL LEADS [QRS DEFLECTION < 1.0 mV IN CHEST LEADS] BORDERLINE ECG No previous ECG available for comparison Electronically Signed On 02-04-2025 07:32:18 CDT by Andrés Abraham M.D.
== END 2025-02-03 11:10 | disposition home or self-care (01) ==
LOC: ANHSURGERY 11:13
PROVIDERS: PCP Hospitalist; Visit Provider Orthopaedic Surgery
DX: Z12.2 Encounter for screening for malignant neoplasm of respiratory organs (principal); Z87.891 Personal history of nicotine dependence
CPT/HCPCS: 93005

== ENCOUNTER 2025-02-05 01:19 | Day surgery (SDC) | payer BC, SELFPAY ==
[2025-01-28 16:15] VITALS: BMI 28.4
--- NOTE | 2025-01-28 16:23 | PC.NURSE ---
Report to the Outpatient Waiting Room, entrance under the green pavilion located off [facility], at time _0830_ on date _16-31-2158_. Planned Procedure Time: _1030_.? Time changes happen often and if your time is changed the preop area will call you the afternoon before. - You and your visitor will be asked to self-screen and do not enter if you have any COVID symptoms. Please call surgeon if you need to reschedule. - A mask is optional within the hospital at this time. Patients may have clear liquids (water, carbonated beverages, clear teas, apple juice) until 3 hours prior to surgery with a maximum of 20 ounces. - No food from midnight until time of surgery and no smoking, or chewing tobacco (or any form of nicotine). No chewing gum, candy or mints. Take only the following medications with a SIP of water on the morning of surgery: ___None____ DO NOT STOP ANY OF YOUR OTHER PRESCRIPTION MEDICATIONS PRIOR TO SURGERY EXCEPT THE FOLLOWING Hold all vitamins and supplements for 3 days per anesthesiologist. Medications to discontinue per physician ___Ibuprofen Acetaminophen is OK to use. Date to take last szel___[id number] Please no make-up, nail sao tomean, hairspray, perfume, deodorant, or body powder the day of surgery.? No jewelry (including any body piercings) or valuables the day of surgery, leave them at home.? Please take a shower or bath the night before, or the morning of, surgery with an antibacterial soap.? Wear comfortable, loose fitting clothing.? - Jewelry must be removed prior to entering the operating room.? Rings and piercings that are not removed may be cut off. - The hospital will not accept responsibility for valuables.? - Please leave all valuables, including medications, at home the day of surgery. If you are going home after surgery, a licensed front load trash truck driver must drive you home.? - NO public transportation without another adult if you receive anesthesia. - We recommend that an adult stay with you for 24 hours following discharge. - We also recommend that you do not drive, make important decision, drink alcoholic beverages, or take any drugs that were not prescribed by your health care provider for at least 24 hours after your discharge time. Follow any additional instructions given to you from your surgeon. Telephone instructions given to __Martha___and asked if any additional questions and then verbalized understanding. Patient advised to call surgeon office or pre surgery nurse liaison [phone] if any additional questions.
[2025-02-05] VITALS (8 sets, daily range): BP systolic 128–160; BP diastolic 70–89; PULSE 54–84; RESP 12–18; TEMP 36.1–36.7; O2SAT 95–100
--- OUTSIDE RECORDS SUMMARY | 2025-02-05 01:25 | XMS_ITS | Encounter Summary ---
Author Organization [employer] Address [address] [place] [address] Care Team Providers Care Senior Managing Director Name Role Phone Unavailable Primary Care Provider Unavailabl e Encounter Details Date Type Department Care Team (Late st Contact Info) Description 12/08/1999 Outpatient Historical [facility] 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
--- OUTSIDE RECORDS SUMMARY | 2025-02-05 01:25 | XMS_ITS | Clinical Summary ---
Author Organization [facility] Address [address] [place] [address] Care Team Providers Care Applications Support Lead Name Role Phone Unavailable Primary Care Provider Unavailabl e Source Comments [facility],non-owned Affiliates and Associated Physician Practices is amultiple site organization consisting of ambulatory clinics and hospital sitesin [place], [place], [place] and [place]. This disclosure is being madepursuant to the Care Everywhere program and may not contain all information available regarding this patient. Last updated 18.[facility] Allergies No known active allergies Medications * [...]
--- OUTSIDE RECORDS SUMMARY | 2025-02-05 01:25 | XMS_ITS | Clinical Summary ---
Author Organization [facility] Address [address] [place] [address] Phone Care Team Providers Care Distance Education Coordinator Name Role Phone Unavailable Primary Care Provider [...] Comments Blood Pressure 124/76 07/15/2022 10:51 AM CURB AND GUTTER LABORER Pulse 58 07/15/2022 10:51 AM CURB AND GUTTER LABORER Temperature 37.1 C (98.7 F) 07/15/2022 10:51 AM CURB AND GUTTER LABORER Respiratory Rate 17 07/15/2022 10:51 AM CURB AND GUTTER LABORER Oxygen Saturation 97% 07/15/2022 10:51 AM CURB AND GUTTER LABORER Inhaled Oxygen Concentration - - Weight - [...] CHEST SCREENING WO Routine 09/08/2021 11:50 AM CURB AND GUTTER LABORER Nicotine dependence, cigarettes, uncomplicated from Last 3 Months or Most Recently Relevant to Health Maintenance Results * CT CHEST SCREENING WO (09/08/2021 11:50 AM CURB AND GUTTER LABORER) Anatomical Region Laterality Modality Chest N/A Computed Tomogra phy 09/08/2021 7:40 PM CURB AND GUTTER LABORER Impressions 09/08/2021 7:43 PM CURB AND GUTTER LABORER IMPRESSION: 1. Scattered zak metric pulmonary nodules. [...] in 12 months. Narrative 09/08/2021 7:43 PM CURB AND GUTTER LABORER EXAM DESCRIPTION: CT CHEST SCREENING WO REASON [...] Kirsten Guidry M.D. TB: TB Report ID: [id number] Reading Location: [facility] Procedure Note iKrsten Nickerson MD - 09/08/2021 EXAM DESCRIPTION: CT [...] Kirsten Guidry M.D. TB: TB Report ID: [id number] Reading Location: [facility] IMPRESSION: 1. Scattered zak metric pulmonary nodules. No suspicious pulmonary nodule. 2. Very minimal pulmonary emphysema in the upper lobes. 3. Subcentimeter hypodensity within the right hepatic lobe, too small to characterize. 4. Nonobstructing left renal calculi. 5. Additional findings as above. Lung-RADS v1.1 category 2: Benign appearance or behavior. Recommendation: Continue annual screening low-dose chest CT in 12 months. Missael Gerardo MD [facility] CT ORDERABLES Final R esult from Last 3 Months or Most Recently Relevant to Health Maintenance Insurance [facility]
--- OUTSIDE RECORDS SUMMARY | 2025-02-05 01:25 | XMS_ITS | Encounter Summary ---
Author Organization [facility] Address [address] [place] [address] Care Team Providers Care Manager Garage Name Role Phone Unavailable Primary Care Provider Unavailabl e Encounter Details Date Type Department Care Team (Late st Contact Info) Description 10/01/2000 Outpatient Historical [facility] CAPACITY PLANNING ENGINEER - Medical [facility] [address] [facility] [address] [address] [place] Social History Tobacco Use Types Packs/Day Years Used Date Smoking Tobacco: Never Assessed Comments Unknown Sex and Gender Information Value Date Recorded Sex Assigned at Not on file Legal Sex Female 4:31 AM WATER SUPERINTENDENT Gender Identity Not on file Sexual Orientation Not on file documented as of this encounter Plan of Treatment Not on file documented as of this encounter Visit Diagnoses Not on filedocumented in this encounter
--- OUTSIDE RECORDS SUMMARY | 2025-02-05 01:25 | XMS_ITS | Clinical Summary ---
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
--- OUTSIDE RECORDS SUMMARY | 2025-02-05 01:25 | XMS_ITS | Encounter Summary ---
Author Organization [facility] Address [address] [place] [address] Care Team Providers Care Hydroelectric Plant Technician Name Role Phone Unavailable Primary Care Provider Unavailabl e Encounter Details Date Type Department Care Team (Late st Contact Info) Description 03/01/2001 Outpatient Historical [facility] SKIP PIT WORKER - Medical [address] [address] Reinaldo Paige MD [address] [place] [phone] Social History Tobacco Use Types Packs/Day Years Used Date Smoking Tobacco: Never Assessed Comments Unknown Sex and Gender Information Value Date Recorded Sex Assigned at Not on file Legal Sex Female 4:31 AM CELL INSTALLER Gender Identity Not on file Sexual Orientation Not on file documented as of this encounter Plan of Treatment Not on file documented as of this encounter Visit Diagnoses Not on filedocumented in this encounter
--- OUTSIDE RECORDS SUMMARY | 2025-02-05 01:25 | XMS_ITS | Clinical Summary ---
Author Organization [facility] [address] Address [address] [place] [address] Care Team Providers Care Client Development Manager Name Role Phone Arian Mcconnell MD Primary Care Provider [phone] [phone] Allergies No known active allergies Medications ibuprofen (ADVIL,MOTRIN) 200 mg tab/cap Take 1 tablet/caps ule (200 mg total) by mouth every 6 (six) hours as needed for pain Active zolpidem (AMBIEN) 5 mg tablet TAKE 1 TABLET (5 MG TOTAL) BY MOUTH NIGHTLY NEEDED FOR SLEEP 30 tablet 5 Active zolpidem (AMBIEN) 5 mg tablet Take 1 tablet (5 mg total) by mouth nightly as needed for sleep for sleep 30 tablet 2 4 02/04/20 25 Discontinued Active Problems Problem Noted Date Diagnosed Date Right shoulder pain 08/23/2024 Assessment & Plan (12/01/2024 1:35 PM CDT): Follows with orthopedics for evaluation and management Skin abnormality 12/13/2023 Adenoma of right adrenal gland 11/20/2023 Assessment & Plan (06/03/2024 3:42 PM COOKER MECHANIC): Stable, well controlled; no evidence of hyper [...] trial of home exercises. Provided info in [employer]. - If no improvement consider PT pelvic [...] assistance Assessment & Plan (06/03/2024 3:42 PM COOKER MECHANIC): Stable, generally well controlled, able to get [...] (12/01/2021): Added automatically from request for surgery [id number] Cubital tunnel syndrome on left 12/01/2021 Overview (12/01/2021): Added automatically from request for surgery [id number] Trigger finger of left thumb 12/01/2021 Overview (12/01/2021): Added automatically from request for surgery [id number] Encounter for screening colonoscopy 11/29/2021 Overview (11/29/2021): Added automatically from request for surgery [id number] Cubital tunnel syndrome on right 08/29/2021 Overview (08/29/2021): Added automatically from request for surgery [id number] Numbness and tingling of both feet 08/04/2019 Bilateral carpal tunnel syndrome 07/10/2019 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 Overview (11/03/2016): Early menopause Tobacco use disorder, mild, in sustained remissi on 07/16/2013 Overview (11/03/2016): Tobacco use Assessment & Plan (12/01/2024 1:34 PM CDT): Stable, well controlled; tobacco free for 10 months; no significant cravings at this time Encouraged continued cessation Assessment & Plan (06/03/2024 3:41 PM COOKER MECHANIC): Stable, improving; no longer smoking tobacco; continues [...] Description 12/01/2024 8:45 AM CDT Office Visit [facility] Primary Care at [address] [address] Arian Mcconnell MD Tobacco use [...] disease; Relation Name Status Comments Father Devaughn muhmamad Mother Kianna mack Alive Mother's Sister 1 [...] on file Legal Sex Female 6:45 PM COOKER MECHANIC Gender Identity Not on file Sexual Orientation [...] (1 of 2) 01/04/2016 Covid-19 Vaccine (3 2023-2 5 season) 2024 06/09/2021, 05/19/2021 Regular [...] Read Routine (OP Routine) 10/04/2024 8:15 AM COOKER MECHANIC Tobacco use Cigarette nicotine dependence, uncomplicated SCREENING MAMMOGRAM BILATERAL W ALYSON Schedule Routine, Read Routine (OP Routine) 07/03/2024 2:25 PM COOKER MECHANIC Breast cancer screening by mammogram HEPATITIS C ANTIBODY Routine 05/27/2024 10:07 AM CDT Encounter for hepatitis C screening test for low risk patient COLONOSCOPY 01/02/2022 11:19 AM CDT from Last 3 Months or Most Recently Relevant to Health Maintenance Results * CT Lung Cancer Screening (10/04/2024 8:15 AM COOKER MECHANIC) Anatomical Region Laterality Modality Chest N/A Computed [...] 11:44 AM - Electronically signed by Mejia NelsonD. AM: AM Report ID: [id number] Reading Location: [id number] Procedure Note Mejia Waller MD - 10/07/2024 EXAM DESCRIPTION: CT LUNG CANCER SCREENING REASON FOR STUDY: Screening CT of the chest in a former smoker with a20 pack year smoking history. Additional history: Stopped [id number]/29/2024. TECHNIQUE: Low dose CT scan of the [...] Mejia Waller M.D. AM: AM Report ID: [id number] Reading Location: [id number] us Arian Mcconnell MD IMG CT PROCEDURES Final R esult * Screening Mammogram Bilateral W Alyson (07/03/2024 2:25 PM COOKER MECHANIC) Anatomical Region Laterality Modality Breast Bilateral Mammography 07/03/2024 4:41 PM COOKER MECHANIC Impressions 07/03/2024 4:41 PM COOKER MECHANIC There is no mammographic evidence to suggest malignancy. The patient may continue screening mammography as per ACR guidelines. FINAL ASSESSMENT: BI-RADS Category 1: Negative. Electronically signed by: Lily Lebron M.D. Narrative 07/03/2024 4:41 PM COOKER MECHANIC EXAMINATION: BILATERAL SCREENING MAMMOGRAM WITH TOMOGRAPHY HISTORY: [...] us Arian Mcconnell MD LAB MICROBIOLOGY - [facility] L ORDERABLES Final Result [facility] [address] Department [place] [address] * COLONOSCOPY (01/02/2022 11:19 AM CDT) Anatomical Region Laterality Modality Other Narrative Procedure Note Sg Urbina MD - 01/02/2022 11:19 AM CDT [facility] Patient Name: Martha Pham Procedure Date: 01/02/2022 11:19 AM Date of : 1965 Admit Type: Outpatient Age: 56 Gender: Female Attending MD: Sg Urbina M.D. Room: [facility] ENDOSCOPY ROOM 2 Note Status: Finalized Patient [...] scope was passed under direct vision. TheColonoscope [id number] was introduced through the anus and advanced [...] malignant neoplasm of colon CPT copyright 2020 [employer]. All rights reserved. The codes documented in this report are preliminary and upon project administrative assistant reviewmay be revised to meet current compliance requirements. Recognized by the [employer] [employer] for promoting quality in endoscopy Sg Urbina MD ENDOSCOPY PROCEDURES Final Re sult from Last 3 Months or Most Recently Relevant to Health Maintenance Insurance [employer] [place] [employer] [place] [facility] Advance Directives For more information, please contact: [phone] * Full Code (Latest Code Status on File) Date Activated Date Inactivated Comments 01/02/2022 10:07 AM 01/02/2022 4:39 PM * Full Code Date Activated Date Inactivated Comments 01/02/2022 10:06 AM 01/02/2022 10:07 AM Care Teams Client Development Manager Relationship Specialty Start Date End Date [place] [address] PCP - General Family Medicine 05/16/22
--- OUTSIDE RECORDS SUMMARY | 2025-02-05 01:25 | XMS_ITS | Referral Summary ---
Author Organization [facility] [address] Address [address] [place] [address] Care Team Providers Care Engine Test Cell Technician Name Role Phone Arian Mcconnell MD Primary Care Provider [phone] [phone] Encounters Date Type Department Care Team Description 12/01/2024 8:45 AM CDT Office Visit [facility] Primary Care at [address] [place] [address] [address] [place] [address] Arian Mcconnell MD Tobacco use [...] 11/20/2023 Assessment & Plan (06/03/2024 3:42 PM SCALLOP CUTTER MACHINE): Stable, well controlled; no evidence of hyper [...] assistance Assessment & Plan (06/03/2024 3:42 PM SCALLOP CUTTER MACHINE): Stable, generally well controlled, able to get [...] of left ulnar 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 12/02/19 Overview (12/01/2021): Added automatically from request for surgery [id number] Cubital tunnel syndrome on left 12/01/2021 Overview (12/01/2021): Added automatically from request for surgery [id number] Trigger finger of left thumb 12/01/2021 Overview (12/01/2021): Added automatically from request for surgery [id number] Encounter for screening colonoscopy 11/29/2021 Overview (11/29/2021): Added automatically from request for surgery [id number] Cubital tunnel syndrome on right 08/29/2021 Overview (08/29/2021): Added automatically from request for surgery [id number] Numbness and tingling of both feet 08/04/2019 Bilateral carpal tunnel syndrome 07/10/2019 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 Overview (11/03/2016): Early menopause Tobacco use disorder, mild, in sustained remissi on 07/16/2013 Overview (11/03/2016): Tobacco use Assessment & Plan (12/01/2024 1:34 PM CDT): Stable, well controlled; tobacco free for 10 months; no significant cravings at this time Encouraged continued cessation Assessment & Plan (06/03/2024 3:41 PM SCALLOP CUTTER MACHINE): Stable, improving; no longer smoking tobacco; continues [...] on file Legal Sex Female 6:45 PM SCALLOP CUTTER MACHINE Gender Identity Not on file Sexual Orientation [...] Read Routine (OP Routine) 10/04/2024 8:15 AM SCALLOP CUTTER MACHINE Tobacco use Cigarette nicotine dependence, uncomplicated SCREENING MAMMOGRAM BILATERAL W JONO Schedule Routine, Read Routine (OP Routine) 07/03/2024 2:25 PM SCALLOP CUTTER MACHINE Breast cancer screening by mammogram HEPATITIS C ANTIBODY Routine 05/27/2024 10:07 AM CDT Encounter for hepatitis C screening test for low risk patient COLONOSCOPY 01/02/2022 11:19 AM CDT from Last 3 Months or Most Recently Relevant to Health Maintenance Results * CT Lung Cancer Screening (10/04/2024 8:15 AM SCALLOP CUTTER MACHINE) Anatomical Region Laterality Modality Chest N/A Computed [...] Mejia Waller M.D. AM: AM Report ID: [id number] Reading Location: [id number] Procedure Note Mejia aWller MD - 10/07/2024 EXAM DESCRIPTION: CT LUNG CANCER SCREENING REASON FOR STUDY: Screening CT of the chest in a former smoker with a20 pack year smoking history. Additional history: Stopped [id number]/29/2024. TECHNIQUE: Low dose CT scan of the [...] Mejia Waller M.D. AM: AM Report ID: [id number] Reading Location: [id number] us Arian Mcconnell MD IMG CT PROCEDURES Final R esult * Screening Mammogram Bilateral W Jono (07/03/2024 2:25 PM SCALLOP CUTTER MACHINE) Anatomical Region Laterality Modality Breast Bilateral Mammography 07/03/2024 4:41 PM SCALLOP CUTTER MACHINE Impressions 07/03/2024 4:41 PM SCALLOP CUTTER MACHINE There is no mammographic evidence to suggest malignancy. The patient may continue screening mammography as per ACR guidelines. FINAL ASSESSMENT: BI-RADS Category 1: Negative. Electronically signed by: Lily Lebron M.D. Narrative 07/03/2024 4:41 PM SCALLOP CUTTER MACHINE EXAMINATION: BILATERAL SCREENING MAMMOGRAM WITH TOMOGRAPHY HISTORY: [...] GENERA L ORDERABLES [place] [address] [place] [address] [address] Department [place] [address] * COLONOSCOPY (01/02/2022 11:19 AM CDT) Anatomical Region Laterality Modality Other Narrative Procedure Note Sg Urbina MD - 01/02/2022 11:19 AM CDT [facility] Patient Name: Martha Pham Procedure Date: 01/02/2022 11:19 AM Date of : 1965 Admit Type: Outpatient Age: 56 Gender: Female Attending MD: Sg Urbina M.D. Room: [facility] ENDOSCOPY ROOM 2 Note Status: Finalized Patient [...] scope was passed under direct vision. TheColonoscope CF-[id number] was introduced through the anus and advanced [...] malignant neoplasm of colon CPT copyright 2020 [employer]. All rights reserved. The codes documented in this report are preliminary and upon asset protection lead reviewmay be revised to meet current compliance requirements. Recognized by the [place] [employer] for promoting quality in endoscopy Sg Urbina MD ENDOSCOPY PROCEDURES Final Re sult from Last 3 Months or Most Recently Relevant to Health Maintenance Insurance [employer] [place] [employer] [place] [employer] [place] Advance Directives For more information, please contact: [phone] * Full Code (Latest Code Status on File) Date Activated Date Inactivated Comments 01/02/2022 10:07 AM 01/02/2022 4:39 PM * Full Code Date Activated Date Inactivated Comments 01/02/2022 10:06 AM 01/02/2022 10:07 AM Care Teams Engine Test Cell Technician Relationship Specialty Start Date End Date Arian Mcconnell MD [address] [place] [address] PCP - General Family Medicine 05/16/22
--- OUTSIDE RECORDS SUMMARY | 2025-02-05 01:25 | XMS_ITS | Encounter Summary ---
Author Organization [facility] Address [address] [place] [address] Care Team Providers Care Visual Merchandising Coordinator Name Role Phone Unavailable Primary Care Provider Unavailabl e Encounter Details Date Type Department Care Team (Late st Contact Info) Description 01/05/2003 Outpatient Historical [facility] RADIATION ONCOLOGY NURSE - Medical [address] [address] Reinaldo Paige MD [address] [place] [phone] Social History Tobacco Use Types Packs/Day Years Used Date Smoking Tobacco: Never Assessed Comments Unknown Sex and Gender Information Value Date Recorded Sex Assigned at Not on file Legal Sex Female 4:31 AM TALK SHOW HOST Gender Identity Not on file Sexual Orientation Not on file documented as of this encounter Plan of Treatment Not on file documented as of this encounter Visit Diagnoses Not on filedocumented in this encounter
--- OUTSIDE RECORDS SUMMARY | 2025-02-05 01:25 | XMS_ITS | Encounter Summary ---
Author Organization [facility] Address [address] [place] [address] Care Team Providers Care Deputy Sheriff Bailiff Name Role Phone Unavailable Primary Care Provider Unavailabl e Encounter Details Date Type Department Care Team (Late st Contact Info) Description 03/08/2000 Outpatient Historical [facility] HERZOG Paige, Reinaldo Baptiste MD [address] [place] [phone] Social History Tobacco Use Types Packs/Day Years Used Date Smoking Tobacco: Never Assessed Comments Unknown Sex and Gender Information Value Date Recorded Sex Assigned at Not on file Legal Sex Female 4:31 AM STRETCH PRESS OPERATOR Gender Identity Not on file Sexual Orientation Not on file documented as of this encounter Plan of Treatment Not on file documented as of this encounter Visit Diagnoses Not on filedocumented in this encounter
--- OUTSIDE RECORDS SUMMARY | 2025-02-05 01:25 | XMS_ITS | Encounter Summary ---
Author Organization [facility] Address [address] [place] [address] Care Team Providers Care Luster Applicator Name Role Phone Unavailable Primary Care Provider Unavailabl e Encounter Details Date Type Department Care Team (Late st Contact Info) Description 01/09/2000 Outpatient Historical [facility] HER[facility] Paige, Reinaldo Baptiste MD [address] [place] [phone] Social History Tobacco Use Types Packs/Day Years Used Date Smoking Tobacco: Never Assessed Comments Unknown Sex and Gender Information Value Date Recorded Sex Assigned at Not on file Legal Sex Female 4:31 AM SEQUENCING MACHINE OPERATOR Gender Identity Not on file Sexual Orientation Not on file documented as of this encounter Plan of Treatment Not on file documented as of this encounter Visit Diagnoses Not on filedocumented in this encounter
--- OUTSIDE RECORDS SUMMARY | 2025-02-05 01:25 | XMS_ITS | Encounter Summary ---
Author Organization [facility] Address [address] [place] [address] Care Team Providers Care Human Performance Consultant Name Role Phone Unavailable Primary Care Provider Unavailabl e Encounter Details Date Type Department Care Team (Late st Contact Info) Description 11/07/2001 Outpatient Historical [facility] ASSISTANT STORE MANAGER - Medical [address] [address] Reinaldo Paige MD [address] [place] [phone] Social History Tobacco Use Types Packs/Day Years Used Date Smoking Tobacco: Never Assessed Comments Unknown Sex and Gender Information Value Date Recorded Sex Assigned at Not on file Legal Sex Female 4:31 AM GLASS OR MIRROR INSPECTOR Gender Identity Not on file Sexual Orientation Not on file documented as of this encounter Plan of Treatment Not on file documented as of this encounter Visit Diagnoses Not on filedocumented in this encounter
--- OUTSIDE RECORDS SUMMARY | 2025-02-05 01:25 | XMS_ITS | Encounter Summary ---
Author Organization [facility] Address [address] [place] [address] Care Team Providers Care Translational Specialist Name Role Phone Unavailable Primary Care Provider Unavailabl e Encounter Details Date Type Department Care Team (Late st Contact Info) Description 02/09/2000 Outpatient Historical [facility] HER[facility] Paige, Reinaldo Baptiste MD [address] [place] [phone] Social History Tobacco Use Types Packs/Day Years Used Date Smoking Tobacco: Never Assessed Comments Unknown Sex and Gender Information Value Date Recorded Sex Assigned at Not on file Legal Sex Female 4:31 AM CERTIFIED ENERGY MANAGER Gender Identity Not on file Sexual Orientation Not on file documented as of this encounter Plan of Treatment Not on file documented as of this encounter Visit Diagnoses Not on filedocumented in this encounter
--- OUTSIDE RECORDS SUMMARY | 2025-02-05 01:25 | XMS_ITS | Encounter Summary ---
Author Organization [facility] Address [address] [place] [address] Care Team Providers Care Laborer Prestressed Concrete Name Role Phone Unavailable Primary Care Provider Unavailabl e Encounter Details Date Type Department Care Team (Late st Contact Info) Description 11/07/1999 Outpatient Historical [facility] HERZ[facility] Paige, Reinaldo Baptiste MD [address] [place] [phone] Social History Tobacco Use Types Packs/Day Years Used Date Smoking Tobacco: Never Assessed Comments Unknown Sex and Gender Information Value Date Recorded Sex Assigned at Not on file Legal Sex Female 4:31 AM PLAQUE MAKER Gender Identity Not on file Sexual Orientation Not on file documented as of this encounter Plan of Treatment Not on file documented as of this encounter Visit Diagnoses Not on filedocumented in this encounter
--- OUTSIDE RECORDS SUMMARY | 2025-02-05 01:25 | XMS_ITS | Encounter Summary ---
Author Organization [facility] Address [address] [place] [address] Care Team Providers Care Wind Energy Engineer Name Role Phone Unavailable Primary Care Provider Unavailabl e Encounter Details Date Type Department Care Team (Late st Contact Info) Description 01/27/2000 Outpatient Historical [facility] HERZ[facility] Paige, Reinaldo Baptiste MD [address] [place] [phone] Social History Tobacco Use Types Packs/Day Years Used Date Smoking Tobacco: Never Assessed Comments Unknown Sex and Gender Information Value Date Recorded Sex Assigned at Not on file Legal Sex Female 4:31 AM PULP MAKER Gender Identity Not on file Sexual Orientation Not on file documented as of this encounter Plan of Treatment Not on file documented as of this encounter Visit Diagnoses Not on filedocumented in this encounter
--- OUTSIDE RECORDS SUMMARY | 2025-02-05 01:25 | XMS_ITS | Encounter Summary ---
Author Organization [employer] Address [address] [place] [address] Care Team Providers Care Charter Boat Operator Name Role Phone Unavailable Primary Care Provider Unavailabl e Encounter Details Date Type Department Care Team (Late st Contact Info) Description 03/08/2000 Outpatient Historical [facility] HERZOG Paige, Reinaldo Baptiste MD [address] [place] [phone] Social History Tobacco Use Types Packs/Day Years Used Date Smoking Tobacco: Never Assessed Comments Unknown Sex and Gender Information Value Date Recorded Sex Assigned at Not on file Legal Sex Female 4:31 AM HEEL EDGE INKER MACHINE Gender Identity Not on file Sexual Orientation Not on file documented as of this encounter Plan of Treatment Not on file documented as of this encounter Visit Diagnoses Not on filedocumented in this encounter
--- NOTE | 2025-02-05 07:23 | WPDHPUPDATE1 ---
History and Physical Update Update Date/Time: 02/05/25 07:23 History and Physical has been reviewed, including an updated exam of the patient. There are NO changes in the patient's condition. Risks, benefits, and alternatives have been discussed and questions answered. Patient agrees to proceed with procedure.
[2025-02-05] MEDS: ACETAMINOPHEN 500 MG TABLET 1000 MG PO (09:05)
[2025-02-05] MEDS: KETOROLAC 15 MG/ML VIAL (*BKC) IV PUSH (09:10)
[2025-02-05] MEDS: LACTATED RINGERS 1,000 ML 30 ML IV CONT ×2 (09:10→12:15)
--- NOTE | 2025-02-05 09:45 | WPDANESEPPF ---
Anes - Initial Pre Proc Eval Procedure: Operation Date: 02/05/25 10:30 Proposed Procedures p Right Shoulder Arthroscopy, Subacromial Decompression with Superior Labrum Anterior to Posterior Debridement - Gigi Curtis MD Date/Time: 02/05/25 09:45 Surgeon: Gigi Curtis MD Pre Op Diagnosis: impingement syndrome, slap tear rt shoulder Patient Data Age: 60 Gender: F Height: 1.57 m Weight: 69 kg Last Vital Signs Temp 36.7 C 02/05/25 08:43 Pulse 63 02/05/25 08:43 Resp 16 02/05/25 08:43 BP 135/88 02/05/25 08:43 Pulse Ox 99 02/05/25 08:43 O2 Del Method Room Air 02/05/25 08:43 Allergies Allergy/AdvReac Type Severity Reaction Status Date / Time No Known Allergies Allergy Verified 02/05/25 09:33 Home Medications ?Medication ?Instructions ?Recorded ?Confirmed ?Type ibuprofen 200 mg tablet 200 mg PO Q6H PRN pain 09/16/24 02/05/25 History zolpidem 5 mg tablet (Ambien) 5 mg PO QHS PRN insomnia 01/14/25 01/28/25 History Patient hx anesthesia problems: none Family hx anesthesia problems: none Results Review: All pre-operative results and documents have been reviewed as part of the pre-operative evaluation. [facility] Past Medical History Medical History (Updated 02/05/25 @ 09:46 by Travis Castro MD) Overweight History of stress test (~2005) Osteoporosis Surgical History Surgical History History of carpal tunnel release Hx of rotator cuff surgery (~05/19/16) Left shoulder Family History Family History Father Heart disease Social History Social History Smoking packs per day: 1 Smoking cigarettes per day: 20.0 Years smoked: 20 Smoking pack-years: 20.00 Smoking status: Former smoker Tobacco type: cigarettes Smoking end date: 01/31/24 Alcohol intake: current Drinks per week: 4 Substance use: never Do You Feel Safe in your Home?: Yes Lack of Transportation: No Lack of Food: Never True Current Housing: I Have Housing Concerned About Future Housing: No Difficulty Paying Gas/Electric Bills: No Difficulty Paying for Meds: No Currently Unemployed: No Education: High School Diploma/GED Difficulty w/ Childcare or Family Care: No Living arrangements: with family Spiritual care concerns: No Anes - Eval Final PreProcedure Day of Procedure 02/05/25 09:45 Patient weight: overweight Heart: regular rate and rhythm Lungs: clear to auscultation Airway: Mallampati scale class II Neurological: alert and oriented Last oral intake: >/= 8 hours ASA classification: II Emergent: no Anesthetic plan: proceed Anesthesia type and monitoring: general ETT and standard monitoring Results Review: All pre-operative results and documents have been reviewed as part of the pre-operative evaluation. Informed Consent: The patient's anesthetic plan and its attendant risks and benefits were discussed with the patient/family/POA. Questions were solicited and answers provided to the satisfaction of the patient/family/POA.
[2025-02-05] MEDS: ceFAZolin 2 GM in SODIUM CHLORIDE 0.9% IV 50 ML 100 ML IVPB (10:18)
[2025-02-05] MEDS: BUPIVACAINE/EPINEPHRINE 0.5% 50 ML VIAL 30 ML INFILTRATE (10:56)
[2025-02-05] MEDS: EPINEPHrine HCL INJ 1 MG/ML AMPUL 3 MG IRRIGATION (11:35)
--- NOTE | 2025-02-05 12:06 | P.OP_ITS ---
Procedure Note - Detailed Date of Procedure 02/05/25 Pre-op Diagnosis impingement syndrome, slap tear rt shoulder Post-op Diagnosis Other (1. Rotator cuff tear (small full thickness) 2. Subacromial impingement 3. SLAP tear type 2) Procedure Performed Right shoulder 1. Arthroscopic rotator cuff repair 2. Arthroscopic subacromial decompression 3. Arthroscopic biceps tenodesis 4. Arthroscopic labral debridement Surgeon Gigi Curtis MD Anesthesia General Findings High grade partial bursal and articular tearing easily completed to a small full thickness tear. Repaired with bone tunnel and 3 sutures. Extensive, unstable SLAP tear. Debridement performed with biceps tenodesis at the articular margin using a swivel lock anchor, loop and tack technique. Prominent lateral acromion and diffuse bursal cuff fraying indicated subacromial impingement. Subacromial decompression and acromioplasty performed with the arthroscopic barbara. Description of Procedure Preoperative antibiotics were given. An interscalene block was administered in the preoperative area. The patient was bought brought to the operating room. A general anesthetic was administered. The patient was carefully positioned in the beach chair position. The head and neck were carefully positioned. The non operative extremity was also carefully positioned. The shoulder was prepped and draped in the usual sterile fashion. Examination was performed. No abnormal findings. Standard posterior and anterior arthroscopic portals were established. Inflow achieved with the arthroscopic pump using saline and epinephrine. The glenohumeral joint was carefully inspected. The articular smiley rfaces were normal. The Superior labrum was torn and unstable. Minimal fraying of the upper subscapularis. The articular supraspinatus was torn 40 percent. The area was marked with a PDS suture. Attention was turned to the subacromial space. A complete bursectomy was performed. There was clear evidence of impingement with mild diffuse bursal fraying and a 40% bursal tear at the supraspinatus. The tear was easily completed and was quite small, about the size of the shaver. The acromion was prominent with a significant lateral spur. Acromioplasty was performed with the barbara. At this point, 2 tunnels were created at the rotator cuff. Three sutures were passed through each tunnel. All sutures were then passed through the cuff tissue. The sutures were tied arthroscopically. The arthroscopic instruments were removed. The wounds were closed with 3-0 Monocryl subcuticular suture and steri strips. There were no complications. A sling was applied and the patient brought to the recovery room. Implants Arthrex swivel lock anchor 4.75 biocomposite. Estimated Blood Loss 10 Pathology None sent Complications No immediate complications Condition Stable Disposition PACU [facility] Billing Surgery - Charge Forward: Surgery Billing
[2025-02-05] MEDS: fentaNYL CITRATE INJ (*CRX) 100 MCG/2 ML VIAL 25 MCG IV PUSH ×5 (12:39→13:11)
[2025-02-05] MEDS: oxyCODONE HCL (*CRX) 5 MG TAB IR PO (13:52)
--- NOTE | 2025-02-05 14:28 | SUR.PHASEII ---
1420 ASSISTED PATIENT APPLY BELT SLING.
== END 2025-02-05 14:27 | disposition home or self-care (01) ==
PROVIDERS: PCP Hospitalist; Visit Provider Orthopaedic Surgery
PROC: (CPT 29805; principal; 2025-02-05 10:30)
DX: S43.431A Superior glenoid labrum lesion of right shoulder, initial encounter (principal); M75.41 Impingement syndrome of right shoulder; M75.81 Other shoulder lesions, right shoulder; M81.0 Age-related osteoporosis without current pathological fracture; Z79.1 Long term (current) use of non-steroidal anti-inflammatories (NSAID); Z98.890 Other specified postprocedural states; Z87.891 Personal history of nicotine dependence; Z82.49 Family history of ischemic heart disease and other diseases of the circulatory system
CPT/HCPCS: 29827; 29826; 29828; J0690; A9270; C1713; J0166; J1100; J1885; J2405; J2704; J3010; J7120